=== PATIENT | male | born 2000 | race African-American/Black ===

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

== ENCOUNTER 2019-01-02 18:44 | Emergency (ER) | payer MEDICAID, OTHER ==
[~2019-01-02] VITALS: Ht 180.3 cm; Wt 68.0 kg
[~2019-01-02 18:44] MED LIST changes: +DOXYCYCLINE MO100 MG ORAL; +NKM
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
[2019-01-02 18:55] VITALS: BP 108/76
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
[2019-01-02] MEDS ORDERED: Neosporin Oint Ud Pkt TOPIC ONE (19:30)
[2019-01-02] MEDS ORDERED: HYDROcodone/Acetamin 5/325 tab ORAL ONE (19:30)
--- NOTE | 2019-01-02 19:42 | NUR ---
ED Nurse Note: Patient transferred to radiology
--- NOTE | 2019-01-02 20:15 | NUR ---
ED Nurse Note: Patient returned from radiology and is currently eating in room. Accompanied by father.
[2019-01-02] MEDS ORDERED: BACITRACIN-P28.35 GM TP (21:08)
[2019-01-02] MEDS ORDERED: ACETAMINOPHEN-1 EAC1 ORAL (21:08)
[2019-01-02] MEDS ORDERED: CYCLOBENZAPRINE10 MG ORAL (21:08)
[2019-01-02] MEDS ORDERED: IBUPROFEN600 MG ORAL (21:08)
--- NOTE | 2019-01-02 21:15 | NUR ---
ER DISCHARGE NOTE: Patient is cleared to be discharged per ERMD, pt is aox4, on room air, with stable vital signs. pt was given dc and prescription instructions, pt was able to verbalize understanding, pt id band removed. pt is able to ambulate with steady gait. pt took all belongings.
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
== END 2019-01-02 21:15 | disposition home or self-care (01) ==
LOC: EMR 19:08
DX: S80.02XA Contusion of left knee, initial encounter (principal); S20.211A Contusion of right front wall of thorax, initial encounter; S80.211A Abrasion, right knee, initial encounter; S50.812A Abrasion of left forearm, initial encounter; Z91.010 Allergy to peanuts; V43.52XA Car driver injured in collision with other type car in traffic accident, initial encounter; Y92.410 Unspecified street and highway as the place of occurrence of the external cause
CPT/HCPCS: 99284

== ENCOUNTER 2019-01-11 22:00 | Emergency (ER) | payer SELFPAY ==
[~2019-01-11] VITALS: Ht 177.8 cm; Wt 63.5 kg
[~2019-01-11 22:00] MED LIST changes: +ACETAMINOPHEN-1 EAC1 ORAL; +BACITRACIN-P28.35 GM TP; +CYCLOBENZAPRINE10 MG ORAL
[2019-01-11 22:10] VITALS: BP 107/64
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
[2019-01-11] MEDS ORDERED: HYDROcodone/Acetamin 5/325 tab ORAL ONE (22:30)
[2019-01-11] MEDS ORDERED: TRAMADOL HCL50 MG ORAL (22:32)
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
[2019-01-11 22:36] VITALS: BP 107/64
--- NOTE | 2019-01-11 22:36 | NUR ---
ED Nurse Note: Pt cleared by ERMD for discharge. DC instructions/prescription was given and explained to pt and verbalized understanding of teachings. All medical deviecs such as ID band removed. Pt is AAO x4, ambulatory and left with all personal belongings.
== END 2019-01-11 22:36 | disposition home or self-care (01) ==
LOC: EMR 22:18
DX: S20.211A Contusion of right front wall of thorax, initial encounter (principal); V49.9XXA Car occupant (driver) (passenger) injured in unspecified traffic accident, initial encounter; Y92.410 Unspecified street and highway as the place of occurrence of the external cause
CPT/HCPCS: 99282

== ENCOUNTER 2019-09-25 16:11 | Emergency (ER) | payer MEDICAID ==
[~2019-09-25] VITALS: Ht 180.3 cm; Wt 65.8 kg
[~2019-09-25 16:11] MED LIST changes: +TRAMADOL HCL50 MG ORAL
[2019-09-25 16:18] VITALS: BP 118/71
[2019-09-25] MEDS ORDERED: Azithromycin 250mg tab ORAL ONE (16:30)
[2019-09-25] MEDS ORDERED: Lidocaine 1% MPF 10mg/ml 5ml INJ ONE (16:30)
[2019-09-25 16:37] LABS: APPEARANCE,URINE CLEAR; BILIRUBIN, URINE NEGATIVE (NEGATIVE); COLOR,URINE PALE YELLOW; GLUCOSE, URINE (UA) NEGATIVE (NEGATIVE); KETONES,URINE NEGATIVE (NEGATIVE); LEUKOCYTE ESTERASE ,URINE 1+ (NEGATIVE); NITRITE,URINE NEGATIVE (NEGATIVE); PH,URINE 7 (4.5-8.0); PROTEIN,URINE NEGATIVE (NEGATIVE); UROBILINOGEN,URINE 1 MG/DL (0.0-1.0)
[2019-09-25] MEDS: Bicillin LA 2.4MMU/4ML SYR IM ONE ×2 (16:44→16:59)
[2019-09-25] MEDS ORDERED: CEPHALEXIN500 MG ORAL (16:46)
--- NOTE | 2019-09-25 16:46 | Emergency Room Report ---
History of Present Illness General Chief Complaint: Male Urogenital Problems Source: Patient Present Illness HPI 18-year-old male with no signal past medical history here complaining of 3 days of urinary frequency and urgency as well as dysuria. Reports that he sexually active with multiple partners without using any protection. Reports that he has been here before for the same thing and is willing to take a treatment for chlamydia and gonorrhea. Patient refuses any treatment for possible syphilis. Denies any penile discharge or rash. Denies any scrotal pain. Denies fever and chills, suprapubic pain, nausea vomiting. Has not taken medication for symptom relief. Denies any hematuria. 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: No Patient History Past Medical History: see triage record Past Surgical History: none Pertinent Family History: none Immunizations: UTD Reviewed Nursing Documentation: PMH: Agreed; PSxH: Agreed Nursing Documentation-PMH Past Medical History: No History, Except For Hx Asthma: Yes Review of Systems All Other Systems: negative except mentioned in HPI Physical Exam Vital Signs Date Time Temp Pulse Resp B/P (MAP) Pulse Ox O2 Delivery O2 Flow Rate FiO2 7/15/20 16:18 98.1 75 22 118/71 (87) 100 Room Air Sp02 EP Interpretation: reviewed, normal General Appearance: no apparent distress, alert, GCS 15, non-toxic Head: normocephalic, atraumatic Eyes: bilateral eye normal inspection, bilateral eye PERRL ENT: hearing grossly normal, normal pharynx, no angioedema, normal voice Neck: full range of motion, supple/symm/no masses Respiratory: chest non-tender, lungs clear, normal breath sounds, speaking full sentences Cardiovascular #1: regular rate, rhythm, no edema Gastrointestinal: normal bowel sounds, non tender, soft, non-distended, no guarding, no rebound Rectal: deferred Genitourinary: no CVA tenderness Musculoskeletal: back normal Neurologic: alert, motor strength/tone normal, oriented x3, sensory intact, responsive, speech normal Psychiatric: judgement/insight normal, memory normal, mood/affect normal, no suicidal/homicidal ideation Skin: no rash Lymphatic: no adenopathy Medical Decision Making PA Attestation All my diagnosis and treatment plans were reviewed ad discussed with my supervising physician Dr. Dalal Diagnostic Impression: Primary Impression: STD exposure Additional Impression: UTI (urinary tract infection) ER Course 18-year-old male with no signal past medical history here complaining of 3 days of urinary frequency and urgency as well as dysuria. Reports that he sexually active with multiple partners without using any protection. Reports that he has been here before for the same thing and is willing to take a treatment for chlamydia and gonorrhea. Patient refuses any treatment for possible syphilis. Denies any penile discharge or rash. Denies any scrotal pain. Denies fever and chills, suprapubic pain, nausea vomiting. Has not taken medication for symptom relief. Denies any hematuria. Ddx considered but are not limited to: UTI, chlamydia, Gonorrhea, syphilis, HIV , herpes 1 or 2 Vital signs: are WNL, pt. is afebrile H&PE are most consistent with : STD exposure, UTI ORDERS: UA, urince cx, Keflex ED INTERVENTIONS: Rocephin, azithromycin DISCHARGE: At this time pt. is stable for d/c to home. Will provide printed patient care instructions, and any necessary prescriptions. Care plan and follow up instructions have been discussed with the patient prior to discharge. Gave a list of STD, take medication as directed, follow-up primary care provider, use protection during sexual encounter, if worsening symptoms return to emergency room Last Vital Signs Date Time Temp Pulse Resp B/P (MAP) Pulse Ox O2 Delivery O2 Flow Rate FiO2 09/25/19 16:18 98.1 75 22 118/71 (87) 100 Room Air Disposition: HOME, SELF-CARE Condition: Stable Scripts Cephalexin* (KEFLEX*) 500 Mg Capsule 500 MG ORAL EVERY 12 HOURS for 7 Days, #14 CAP 0 Refills Prov: Nicole Weaver 09/25/19 Patient Instructions: Chlamydia, Male, Gonorrhea, Urinary Tract Infection Additional Instructions: Take medication as directed, follow with your primary care provider, if worsening symptoms return to emergency room Nicole Weaver Sep 25, 2019 16:45
== END 2019-09-25 17:00 | disposition home or self-care (01) ==
LOC: EMR 16:30
DX: N39.0 Urinary tract infection, site not specified (principal); Z20.2 Contact with and (suspected) exposure to infections with a predominantly sexual mode of transmission; Z91.010 Allergy to peanuts
CPT/HCPCS: 81003; 87086; 96372; 96374; J0696; Q0144; Z7502; 99284

== ENCOUNTER 2019-11-01 14:09 | Emergency (ER) | payer MEDICAID ==
[~2019-11-01] VITALS: Ht 180.3 cm; Wt 68.0 kg
[~2019-11-01 14:09] MED LIST changes: +CEPHALEXIN500 MG ORAL; +IBUPROFEN600 M1 ORAL
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
[2019-11-01] MEDS ORDERED: Acetaminophen 500mg (ES) tab ORAL ONE (14:30)
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
--- NOTE | 2019-11-01 15:31 | Diagnostic Imaging Report ---
Indication: Right knee pain Technique: Noncontrast spiral acquisitions obtained through the right knee Multiplanar reconstructions were generated. Total dose length product 117 mGycm. CTDIvol(s) 3 mGy. Radiation dose was minimized using automated exposure control Comparison: Plain radiograph dated 10/26/2019 Findings: No acute fracture demonstrated. No dislocations. The joint spaces are preserved. No evidence of radiopaque foreign body. There is questionably slight superior and lateral subluxation of the patella. There is soft tissue swelling over and below the tibial tubercle. There is also edema of the subcutaneous fat of the anterior knee, particularly anterior to the proximal tibia. The patellar tendon appears grossly intact, although the ability of CT to evaluate for injury of such is very limited. No joint effusion demonstrated. Impression: Soft tissue swelling anterior to the proximal tibia, also described on the radiograph 6 days earlier. Etiology/significance of this is uncertain. Consider further evaluation with MRI Equivocal slight superior and lateral subluxation of the patella, could be related to the above if real. Correlate with clinical findings No evidence of acute fracture. No effusion Note that CT is insensitive to internal derangement. Likewise consider MRI for better characterization if there is high clinical suspicion for such The CT scanner at [facility] is accredited by the [employer] and the scans are performed using protocols designed to limit radiation exposure to as low as reasonably achievable to attain images of sufficient resolution adequate for diagnostic evaluation.
[2019-11-01] MEDS ORDERED: NAPROXEN250 MG ORAL (15:55)
[2019-11-01 16:05] VITALS: BP 113/71
--- NOTE | 2019-11-01 16:05 | NUR ---
ED Nurse Note: knee imobaliser, and crutches were provided
--- NOTE | 2019-11-01 16:05 | NUR ---
ED Nurse Note: Pt cleared by health care Provider for discharge. DC instructions/prescription was given and explained to pt and verbalized understanding of teachings. All medical deviecs such as ID band removed. Pt is AAO x4, ambulatory and left with all personal belongings.
== END 2019-11-01 16:08 | disposition home or self-care (01) ==
LOC: EMR 14:30
DX: S89.91XA Unspecified injury of right lower leg, initial encounter (principal); V03.90XA Pedestrian on foot injured in collision with car, pick-up truck or van, unspecified whether traffic or nontraffic accident, initial encounter; Y92.9 Unspecified place or not applicable; Z91.010 Allergy to peanuts
CPT/HCPCS: 10060; 29505; 73700; Z7502; 99284